=== PATIENT | male | born 1995 ===

== ENCOUNTER 2017-11-16 18:39 | Emergency (ER) | payer SELFPAY ==
[2017-11-16 19:01] VITALS: TEMP 98.5
--- NOTE | 2017-11-16 20:43 | C.PDOC ---
History Of Present Illness 22 year year old male presents to the ED c/o mass on the left sided jaw area for the past few months that has been on and off. Patient denies any fever, chills, pain, limitations in jaw movements, fall, injury, trauma. Chief Complaint (Nursing): Abnormal Skin Integrity History Per: Patient History/Exam Limitations: no limitations Onset/Duration Of Symptoms: Days Current Symptoms Are (Timing): Still Present Location Of Injury: Left: Face (jaw area) Quality Of Symptoms: Painful, Swollen Recent travel outside of the [place]: No Additional History Per: Patient Past Medical History Reviewed: Historical Data, Nursing Documentation, Vital Signs Vital Signs: Last Vital Signs Temp 98.5 F 11/16/17 18:58 Pulse 85 11/16/17 18:58 Resp 20 11/16/17 18:58 BP 150/89 11/16/17 18:58 Pulse Ox 99 11/16/17 22:53 - Medical History PMH: No Chronic Diseases Surgical History: No Surg Hx Family History: States: Unknown Family Hx - Social History Hx Alcohol Use: Yes Hx Substance Use: No - Immunization History Hx Tetanus Toxoid Vaccination: No Hx Influenza Vaccination: No Hx Pneumococcal Vaccination: No Review Of Systems Constitutional: Negative for: Fever, Chills Eyes: Negative for: Vision Change ENT: Positive for: Mouth Swelling. Negative for: Nose Discharge, Nose Congestion, Throat Pain, Throat Swelling Respiratory: Negative for: Shortness of Breath Gastrointestinal: Negative for: Nausea, Vomiting Skin: Negative for: Rash Neurological: Negative for: Headache Physical Exam - Physical Exam Appears: Non-toxic, No Acute Distress Skin: Normal Color, Warm, Dry Head: Atraumatic, Normacephalic, Swelling (left side jaw area, golf ball size. hard to touch not fluctuant, not adherent to the jaw, no drainage, no pain to touch) Eye(s): bilateral: Normal Inspection, PERRL, EOMI Ear(s): Bilateral: Normal Nose: No Discharge Oral Mucosa: Moist Tongue: No Swelling Lips: No Swelling Teeth: Normal Dentition Throat: Normal, No Erythema, No Exudate Neck: Normal ROM, Supple Chest: Symmetrical Cardiovascular: Rhythm Regular, No Murmur Respiratory: Normal Breath Sounds, No Rales, No Rhonchi, No Wheezing Extremity: Normal ROM, No Tenderness, No Swelling Neurological/Psych: Oriented x3, Normal Speech, Normal Cognition Gait: Steady ED Course And Treatment - Laboratory Results Result Diagrams: 11/16/17 20:58 11/16/17 20:58 O2 Sat by Pulse Oximetry: 99 (ON RA) Pulse Ox Interpretation: Normal - CT Scan/US CT facial Other Rad Studies (CT/US): Read By Radiologist, Radiology Report Reviewed CT/US Interpretation: FINDINGS: Bones/joints: No acute fracture. Soft tissues : There is a complex cystic mass in the subcutaneous fat of the left facial soft tissues. adjacent to the left mandible. The mass measures 4.5 x 3.8 x 3.9 cm demonstrating internal. septations. Differential diagnosis includes infectious processes/abscess and neoplasia. The are multiple small submandibular and cervical lymph nodes. The largest entry level marketing representative lymph. node in the left submandibular area measures 1.7 cm. Orbits: Unremarkable. Sinuses : Unremarkable. No air-fluid levels. IMPRESSION:Left facial subcutaneous fat complex cystic mass. Differential diagnosis includes infectious. processes/ abscess and neoplasia. Thank you for allowing us to participate in the care of your patient. Dictated and Authenticated by: Kami Trejo MD. 2017 10:36 PM Eastern Time ([place] & [place]) Medical Decision Making Medical Decision Making: Impression: lump in the jaw area PLan: * Labs Disposition Counseled Patient/Family Regarding: Diagnosis - Disposition Referrals: Arvin Dao MD [Staff Provider] - [facility] [Outside] Disposition: HOME/ ROUTINE Disposition Time: 22:49 Condition: STABLE Instructions: Epidermal Cyst Forms: [employer] [facility] ([place]) - POA Present On Arrival: None - Clinical Impression Clinical Impression: Cyst of mandible - Scribe Statement The provider has reviewed the documentation as recorded by the Scribe Lj Romero All medical record entries made by the Scribe were at my direction and personally dictated by me. I have reviewed the chart and agree that the record accurately reflects my personal performance of the history, physical exam, medical decision making, and the department course for this patient. I have also personally directed, reviewed, and agree with the discharge instructions and disposition.
[2017-11-16 21:02] LABS: BASO # 0.1 K/uL (0.0-0.2); BASO % 0.4 % (0.0-2.0); EOS # 0.3 K/uL (0.0-0.7); EOS % 2.5 % (0.0-4.0); HEMOGLOBIN 15.2 g/dL (12.0-18.0); LYMPH # 2.1 K/uL (1.0-4.3); MEAN CELL VOLUME 84.4 fL (80.0-94.0); MEAN CORPUSCULAR HEMOGLOBIN 28.4 pg (27.0-31.0); MEAN CORPUSCULAR HGB CONC 33.7 g/dL (33.0-37.0); MEAN PLATELET VOLUME 8.9 fL (7.2-11.7); MONO % 7.4 % (0.0-10.0); NEUT # 10.4 K/uL (1.8-7.0); NEUT % 74.7 % (50.0-75.0); RBC 5.34 Mil/uL (4.40-5.90); RED CELL DISTRIBUTION WIDTH 13.3 % (11.5-14.5); WHITE BLOOD COUNT 13.9 K/uL (4.8-10.8)
[2017-11-16 21:16] LABS: ALBUMIN 3.6 g/dL (3.5-5.0); ALT/SGPT 34 U/L (21-72); AST/SGOT 35 U/L (17-59); BLOOD UREA NITROGEN 9 mg/dL (9-20); CALCIUM 9.4 mg/dl (8.6-10.4); GFR AFRICAN-AMERICAN > 60; GFR NON-AFRICAN AMERICAN > 60
--- NOTE | 2017-11-16 22:36 | CT ---
EXAM: CT Maxillofacial Without Intravenous Contrast CLINICAL HISTORY: 22 years old, male; Signs and symptoms; Mass, lump, or swelling; Maxilla; Additional info: Jaw mass left side TECHNIQUE: Axial computed tomography images of the face without intravenous contrast. All CT scans at this facility use one or more dose reduction techniques, viz.: automated exposure control; ma/kV adjustment per patient size (including targeted exams where dose is matched to indication; i.e. head); or iterative reconstruction technique. Coronal and sagittal reformatted images were created and reviewed. COMPARISON: No relevant prior studies available. FINDINGS: Bones/joints: No acute fracture. Soft tissues: There is a complex cystic mass in the subcutaneous fat of the left facial soft tissues adjacent to the left mandible. The mass measures 4.5 x 3.8 x 3.9 cm demonstrating internal septations. Differential diagnosis includes infectious processes/abscess and neoplasia. The are multiple small submandibular and cervical lymph nodes. The largest route sales representative lymph node in the left submandibular area measures 1.7 cm. Orbits: Unremarkable. Sinuses: Unremarkable. No air-fluid levels. IMPRESSION: Left facial subcutaneous fat complex cystic mass. Differential diagnosis includes infectious processes/abscess and neoplasia.
[2017-11-16 23:01] VITALS: BP 125/82; PULSE 78; RESP 16; O2SAT 98
== END 2017-11-16 23:00 | disposition home or self-care (01) ==
LOC: C.ER 18:39
DX: M27.40 Unspecified cyst of jaw (principal)